=== PATIENT | male | born 1955 | race Caucasian/White ===

== ENCOUNTER 2016-09-08 10:27 | Outpatient (CLI) | payer OTHER | END 2016-09-08 10:28 | disposition home or self-care (01) | DX: M51.36 Other intervertebral disc degeneration, lumbar region (principal); M51.37 Other intervertebral disc degeneration, lumbosacral region; M51.26 Other intervertebral disc displacement, lumbar region; M43.16 Spondylolisthesis, lumbar region; D17.79 Benign lipomatous neoplasm of other sites; D18.09 Hemangioma of other sites ==

== ENCOUNTER 2018-11-21 15:06 | Outpatient (CLI) | payer OTHER | END 2018-11-21 15:07 | disposition short-term general hospital (02) | LOC: EMS 15:06 | PROVIDERS: ATTEND Surgery | DX: M54.2 Cervicalgia (principal); R10.2 Pelvic and perineal pain; V43.53XA Car driver injured in collision with pick-up truck in traffic accident, initial encounter; Y92.410 Unspecified street and highway as the place of occurrence of the external cause | CPT/HCPCS: A0425; A0429 ==